=== PATIENT | male | born 2000 | race Two or more races ===

== ENCOUNTER 2024-05-08 10:18 | Inpatient (IN) | payer SELFPAY ==
[2024-05-08] VITALS (23 sets, daily range): BP systolic 81–120; BP diastolic 42–63; PULSE 80–146; RESP 14–23; TEMP 36.8–39.6; O2SAT 92–99; BMI 28.3; BMI 24.2
--- NOTE | 2024-05-08 10:53 | ED_ITS ---
Discharge Plan Disposition Patient Disposition: Admitted Clinical Impressions Clinical Impression: Acute appendicitis, Sepsis Discharge ED Provider: Paula Moss [facility] HPI General Chief complaint: Abdominal Pain Stated complaint: weakness, abd pain, vomiting Mode of Arrival: Wheelchair Source of Information: Patient Limitations: Language Barrier Time Seen by Provider: 05/08/24 10:25 Description of Symptoms (Recalled from Triage Doc. by RN): Reports right lower abdomen pain and vomiting. 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, patient reports started yesterday with pain in his right lower abdomen with N/V that has continued to get worse now having fever and chills and feels ill, Reports pain in right lower abdomen 03/24 Related Data Home Medications ?Medication ?Instructions ?Recorded ?Confirmed No Known Home Medications 05/08/24 05/08/24 Allergies Allergy/AdvReac Type Severity Reaction Status Date / Time No Known Allergies Allergy Verified 05/08/24 11:00 Worker's Comp Is this a Worker's Comp case?: No [facility] Disclaimer: The information contained in this section may have been updated after the patient was seen, as this information can be updated by other users. Social History (Updated 05/08/24 @ 13:22 by Huber Teague CRNA) Smoking Status: Current every day smoker alcohol intake: never substance use type: denies use current occupational status: other Travel in the last 8 weeks: None ROS Obtained: Yes All systems reviewed & no additional complaints except as documented and Yes Systems reviewed as appropriate & no additional complaints except as documented Constitutional Constitutional: Reports system reviewed and no additional complaints, except as documented, Reports as per HPI, Reports chills and Reports fever(s) ENT Ears, Nose, Mouth, and Throat: Reports system reviewed and no additional complaints, except as documented and Reports as per HPI Cardiovascular Cardiovascular: Reports system reviewed and no additional complaints, except as documented and Reports as per HPI Respiratory Respiratory: Reports system reviewed and no additional complaints, except as documented and Reports as per HPI Gastrointestinal Gastrointestingal: Reports system reviewed and no additional complaints, except as documented, as per HPI, abdominal pain, nausea and vomiting Physical Exam General General appearance: alert Comment: Patient lying on exam table holding abdomen Respiratory Respiratory exam: Present normal lung sounds bilaterally; Absent respiratory distress Cardiovascular Cardiovascular exam: Present tachycardia Abdominal Exam Abdominal exam: Present tenderness (reports tenderness in right lower quad with palpation) Neurological Exam Neurological exam: Present alert and oriented X3 Medical Decision Making Medical Records Screening: Per USPSTF and CDC recommendations, given the prevalence of disease in our region, it is our hospital?s policy to screen for HIV and viral Hepatitis for all patients aged 18 and over and those with ongoing risk factors. Guido Inquiry Pt receiving controlled substance: No Guido was queried for this patient: No Vital Signs: 05/08/24 10:21 Temperature 103.3 F H Temperature Source Oral Pulse Rate [Radial] 146 H Respiratory Rate 20 Blood Pressure [Right Arm] 115/58 L Blood Pressure Mean [Right Arm] 77 Blood Pressure Source [Right Arm] Automatic Cuff Blood Pressure Position [Right Arm] Sitting 02 Sat by Pulse Oximetry 96 Oxygen Delivery Method Room Air Lab Data 05/08/24 10:43 05/08/24 10:43 Medical Decision Narrative: Patient complaining of pain in right lower abdomen that started yesterday and has continued to get worse along with N/V fever and chills Due to symptoms and patient complaints will transfer to the ED for further work up and evaluation patient agreed Called Ed and patient was moved to room 9
--- NOTE | 2024-05-08 10:59 | PC.NURSE ---
dr rabago at bedside
--- NOTE | 2024-05-08 11:05 | CT_ITS ---
FINAL REPORT TECHNIQUE: After the administration of intravenous contrast, axial images were obtained through the abdomen and pelvis by computed tomography. The study was performed with techniques to keep radiation dose as low as reasonably achievable, (ALARA). Individual dose reduction techniques using automated exposure control or adjustment of mA and/or kV according to the patient's size were employed. CLINICAL HISTORY: RLQ abd apin, fever, tachy COMPARISON: None FINDINGS: Abdomen: No acute density is seen within the lung bases. Solid abdominal organs are unremarkable. The gallbladder is unremarkable. No bowel obstruction is present. There is no free air. No fluid collection is seen. There is no adenopathy. Pelvis: There is an enlarged thick-walled appendix consistent with appendicitis. The appendix measures up to 10 mm. Pelvic bowel loops are unremarkable. The urinary bladder and prostate are unremarkable. There is no free fluid. No pelvic mass is seen. IMPRESSION: Early mild uncomplicated appendicitis. Reviewed, Interpreted and Dictated by Buck Becker MD Transcribed by Lizeth Hu Authenticated and [facility]
--- NOTE | 2024-05-08 11:08 | ED_ITS ---
Discharge Plan Disposition Patient Disposition: Admitted Prescriptions Prescriptions: No Action No Known Home Medications Referrals Follow up/Referrals: Provider,Referral, [Primary Care Provider] - See instructions Clinical Impressions Clinical Impression: Acute appendicitis, Sepsis Instructions Patient Instructions: DI for Acute Abdominal Pain Print Language Print Language: Sudanese Discharge ED Provider: Paula Moss General Adult HPI General Chief complaint: Abdominal Pain Stated complaint: weakness, abd pain, vomiting Time Seen by Provider: 05/08/24 10:25 Mode of Arrival: Wheelchair Source of Information: Patient Limitations: Language Barrier Description of Symptoms (Recalled from ER Triage Doc. by RN): Reports right lower abdomen pain and vomiting. History of Present Illness HPI narrative: Patient is a 22-year-old previously healthy gentleman who presents today and history is primarily obtained utilizing an conformal pad former. Patient states that for the past 24 hours she has had right lower quadrant abdominal pain its only been located in that area. He has a small amount of dysuria but nothing significant. No testicular pain no symptoms anywhere else. He has had some nausea and vomiting but developed a fever around 4 5 AM subsequently came to the emergency department for further evaluation and management. He was seen in the [facility] and sent to the ED given his acuity. He was tachycardic and febrile at the [facility]. Related Data Home Medications ?Medication ?Instructions ?Recorded ?Confirmed No Known Home Medications 05/08/24 05/08/24 Allergies Allergy/AdvReac Type Severity Reaction Status Date / Time No Known Allergies Allergy Verified 05/08/24 11:00 [facility] Disclaimer: The information contained in this section may have been updated after the patient was seen, as this information can be updated by other users. Social History Smoking Status: Current every day smoker alcohol intake: never current occupational status: other Travel in the last 8 weeks: None ROS Obtained: Yes All systems reviewed & no additional complaints except as documented Physical Exam General General appearance: alert Respiratory Respiratory exam: Present normal lung sounds bilaterally Cardiovascular Cardiovascular exam: Present tachycardia (Heart rate 150 at rest and regular) Abdominal Exam Abdominal exam: Present other (Patient has involuntary guarding significant tenderness in the right lower quadrant with rebound) Neurological Exam Neurological exam: Present alert and oriented X3 Medical Decision Making Medical Records Screening: Per USPSTF and CDC recommendations, given the prevalence of disease in our region, it is our hospital?s policy to screen for HIV and viral Hepatitis for all patients aged 18 and over and those with ongoing risk factors. Guido Inquiry Pt receiving controlled substance: No Vital Signs: 05/08/24 10:21 05/08/24 10:43 05/08/24 10:49 Temperature 103.3 F H 103.3 F H Temperature Source Oral Oral Pulse Rate 128 H Pulse Rate [Radial] 146 H 128 H Respiratory Rate 20 22 Blood Pressure 120/59 L Blood Pressure [Right Arm] 115/58 L 120/59 L Blood Pressure Mean [Right Arm] 77 79 Blood Pressure Source [Right Arm] Automatic Cuff Blood Pressure Position [Right Arm] Sitting 02 Sat by Pulse Oximetry 96 92 L 93 L Oxygen Delivery Method Room Air Room Air 05/08/24 11:15 Temperature Temperature Source Pulse Rate 130 H Pulse Rate [Radial] Respiratory Rate Blood Pressure 103/57 L Blood Pressure [Right Arm] Blood Pressure Mean [Right Arm] Blood Pressure Source [Right Arm] Blood Pressure Position [Right Arm] 02 Sat by Pulse Oximetry 97 Oxygen Delivery Method Room Air Lab Data Lab results reviewed: Yes I reviewed the patient's lab results. Lab Results 05/08/24 10:43: WBC 2.0 L, RBC 5.16, Hgb 16.2, Hct 49.4, MCV 95.9 H, MCH 31.4 H, MCHC 32.7, RDW 13.7, Plt Count 191, MPV 7.2 L, Neut % (Auto) 84.0 H, Lymph % (Auto) 11.7, [place] % (Auto) 2.7, Eos % (Auto) 1.1, Baso % (Auto) 0.4, Neut # (Auto) 1.7 L, Lymph # (Auto) 0.2 L, [place] # (Auto) 0.1, Eos # (Auto) 0.0, Baso # (Auto) 0.0, Sodium 136, Potassium 3.1 L, Chloride 104, Carbon Dioxide 25, Anion Gap 10.1, BUN 18, Creatinine 1.20, Estimated Creat Clear 94, Estimated GFR 76, Est GFR ( Amer) 92, Glucose 130 H, Lactate 2.8 H, Calcium 9.0, Total Bilirubin 2.3 H, AST 121 H, ALT 193 H, Alkaline Phosphatase 84, Total Protein 7.0, Albumin 4.3, Globulin 2.7, Albumin/Globulin Ratio 1.6, Lipase 65, HIV 1&2 Antibody Rapid Nonreactive 05/08/24 10:43 05/08/24 10:43 Orders (Tests/Meds): ED MEDICATIONS Generic Name Dose Route Start Last Admin Trade Name Freq PRN Reason Stop Dose Admin Lactated Ringer's 1,910 mls @ 955 mls/hr 05/08/24 11:27 05/08/24 11:38 Lactated Ringer's 1000 Ml Bag 30 ml/kg infuse over 2 hr (1910 ml) 05/08/24 13:26 955 mls/hr IV Administration .Q2H ONE Piperacillin Sod/Tazobactam 50 mls @ 100 mls/hr 05/08/24 12:33 Sod 3.375 gm/ Sodium Chloride IV 05/08/24 13:02 ONCE ONE Discontinued Medications Generic Name Dose Route Start Last Admin Trade Name Fremiriam PRN Reason Stop Dose Admin Acetaminophen 1,000 mg 05/08/24 11:05 05/08/24 11:11 Acetaminophen 1,000mg/100ml Vial IV 05/08/24 11:06 1,000 mg ONCE ONE Administration Lactated Ringer's 1,000 mls @ 999 mls/hr 05/08/24 11:15 05/08/24 11:11 Lactated Ringer's 1000 Ml Bag IV 05/08/24 12:15 999 mls/hr .Q1H1M LOREN Administration Iopamidol 75 ml 05/08/24 11:58 05/08/24 11:59 Iopamidol-370 (76%);100ml Bottle IV 05/08/24 11:59 75 ml ONCE ONE Administration Morphine Sulfate 4 mg 05/08/24 11:05 05/08/24 11:11 Morphine 4mg/Ml Syringe IV 05/08/24 11:06 4 mg ONCE ONE Administration Ondansetron HCl 4 mg 05/08/24 11:05 05/08/24 11:11 Ondansetron 4mg/2ml Vial IV 05/08/24 11:06 4 mg ONCE ONE Administration Sodium Chloride 10 ml 05/08/24 11:58 05/08/24 11:59 Sodium Chloride 0.9% 10ml Syr (Rad Only) IV 05/08/24 11:59 10 ml ONCE ONE Administration ORDERS Category Date Time Status CT abdomen pelvis w con Stat Cat Scan 05/08/24 11:05 Taken CBC w/Auto Diff [Complete Blood Count Auto Diff] Stat Lab 05/08/24 10:43 Completed CMP [Comprehensive Metabolic Panel] Stat Lab 05/08/24 10:43 Completed HIV (1&2) Antibody Rapid Stat Lab 05/08/24 10:43 Completed Hep C Ab with Reflex to RNA Stat Lab 05/08/24 10:43 Received Hepatitis C Antibody Stat Lab 05/08/24 10:43 Stop Req Lactic Acid Stat Lab 05/08/24 10:43 Completed Lipase Stat Lab 05/08/24 10:43 Completed UA [Urinalysis and Microscopic] Stat Lab 05/08/24 11:06 Ordered Blood Culture Stat Micro 05/08/24 10:49 Received Medical Decision Narrative: Patient is a febrile and tachycardic 22-year-old male presenting today with significant right lower quadrant abdominal pain with some rebound and guarding. Differential includes perforated viscus including a perforated appendicitis with abscess formation, colitis, mesenteric adenitis and viral syndrome, etc. Cultures have been sent IV fluids initiated CT scan with IV contrast has been ordered and will reassess after his initial workup is complete. Reassessment 1235 patient has leukopenia in the setting of fever and tachycardia this is consistent with sepsis. Patient borderline hypotensive but has not required pressors. IV fluids being administered also he has been given a dose of Zosyn after CT scan was performed and personally interpreted which shows uncomplicated appendicitis. He does seem to be sick at a proportion to this appendicitis but will need source control assuming that this is the source. No alternative explanation at this point. I will discuss the case with general surgery and patient will be admitted for surgical intervention and ongoing medical management. Critical Care Critical Care Time Critical Care Time: Yes Attestation: On 05/08/24, the high probability of a clinically significant, sudden or life threatening deterioration of the following system(s) required my full and direct attention, intervention and personal management. The time I documented below is in addition to time spent performing reported procedures but includes the following listed in this critical care notation. Total Time Total Critical Care Time: 35
[2024-05-08] MEDS: MORPHINE 4MG/ML SYRINGE 4 MG IV (11:11)
[2024-05-08] MEDS: ONDANSETRON 4MG/2ML VIAL 4 MG IV (11:11)
[2024-05-08] MEDS: LACTATED RINGERS 1000ML 1,000 ML 999 ML IV (11:11)
[2024-05-08] MEDS: ACETAMINOPHEN 1,000MG/100ML VIAL 1000 MG IV (11:11)
[2024-05-08 11:18] LABS: Albumin Level 4.3 g/dl (3.5-5.0); Chloride 104 mmol/L (98-107); Potassium 3.1 mmoL/L (3.5-5.1); Sodium 136 mmol/L (136-145)
[2024-05-08 11:21] LABS: Alanine Aminotransferase 193 U/L (12-78); Albumin/Globulin Ratio 1.6 (1.1-1.8); Alkaline Phosphatase 84 U/L (38-126); Anion Gap 10.1 mEq/L (5-15); Aspartate Amino Transferase 121 U/L (17-59); Bilirubin,Total 2.3 mg/dl (0.2-1.3); Blood Urea Nitrogen 18 mg/dl (9-20); Carbon Dioxide 25 mmol/L (22.0-30.0); Creatinine Clearance Estimated 94 mL/min (50-200); Estimated Glomerular Filt Rate 76 ml/min (>60); GFR (African American) 92 ML/MIN (>60); Globulin 2.7 g/dL (1.3-3.2); Glucose 130 mg/dl (74-100)
[2024-05-08 11:24] LABS: Lactic Acid 2.8 mmol/L (0.7-2.1)
--- NOTE | 2024-05-08 11:25 | PC.NURSE ---
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 States he started vomiting and belly pain yesterday and developed a fever at 0400. denies any drug or regular etoh intake. no medical problems or daily medications. states pain in rlq is 8/10. medicated per OCT.
[2024-05-08 11:33] LABS: Basophils % 0.4 % (0.1-2.0); Eosinophils % 1.1 % (0.1-12.0); Hematocrit 49.4 % (42.0-52.0); Hemoglobin 16.2 g/dL (14.1-18.0); Lymphocytes # 0.2 K/mm3 (0.7-4.5); Lymphocytes % 11.7 % (10-50); Mean Corpuscular HGB Conc 32.7 g/dL (31.8-35.4); Mean Corpuscular Hemoglobin 31.4 pg (27.0-31.2); Mean Corpuscular Volume 95.9 fl (80-94); Mean Platelet Volume 7.2 fl (7.4-10.4); Monocytes # 0.1 K/mm3 (0.1-1.0); Monocytes % 2.7 % (1.7-9.3); Neutrophils # 1.7 K/mm3 (1.8-7.8); Platelet Count 191 K/mm3 (142-424); Red Blood Count 5.16 M/mm3 (4.60-6.20); Red Cell Distribution Width 13.7 % (11.5-17.5)
--- NOTE | 2024-05-08 11:34 | PC.NURSE ---
pt was sleeping in bed no needs at this time ,call light and visitor at bs
[2024-05-08] MEDS: LACTATED RINGERS 1000ML 1,910 ML 955 ML IV (11:38)
[2024-05-08 11:43] LABS: Lipase 65 U/L (23-300)
--- NOTE | 2024-05-08 11:44 | PC.NURSE ---
pt to ct
[2024-05-08] MEDS: IOPAMIDOL-370 (76%);100ML BOTTLE 75 ML IV (11:59)
[2024-05-08] MEDS: SODIUM CHLORIDE 0.9% 10ML SYR (RAD ONLY) 10 ML IV (11:59)
[2024-05-08 12:21] LABS: HIV (1&2) Antibody Rapid NONREACTIVE (NONREACTIVE)
[2024-05-08] MEDS: PIPERCILLIN/TAZO 3.375 GM in 0.9 % SODIUM CHLORIDE 50 ML IV (12:37)
--- NOTE | 2024-05-08 12:37 | PC.NURSE ---
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
--- NOTE | 2024-05-08 12:51 | PC.NURSE ---
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
--- NOTE | 2024-05-08 12:53 | PC.NURSE ---
report given to huan kathleen rn and zach rn with surgery
--- NOTE | 2024-05-08 12:55 | PC.NURSE ---
surgery team @ bedside
--- NOTE | 2024-05-08 13:03 | PC.NURSE ---
surgery team taking pt upstairs
--- NOTE | 2024-05-08 13:05 | PC.NURSE ---
pt has been taken off the floor with surgery.
--- NOTE | 2024-05-08 13:21 | P.PNANES_ITS ---
[facility] Disclaimer: The information contained in this section may have been updated after the patient was seen, as this information can be updated by other users. Social History Smoking Status: Current every day smoker alcohol intake: never substance use type: denies use current occupational status: other Travel in the last 8 weeks: None [facility] Anesthesia Checklist Patient Identification Patient Identification: Arm Band and Verbal (Name & ) Structural Data Admitted From: Emergency Dept Planned Operative Procedure/s: Lap. appendectomy Consent for Planned Operative Procedure(s) Verified: Yes Verified Documents: Surgical Consent and History and Physical NPO Status Verified Time NPO: 00:00 Chart Verification Results Verified: CBC and BMP Additional verifications Anesthesia Reactions: No Airway Assessment Mallampati Score:: Class IV C-Spine Mobility Assessed: Yes TMJ Mobility Assessed: Yes Dentition: Good Dentition Neurological Assessment Level of Consciousness: Awake Hx Seizures: No Numbness or tingling in extremities: No Anesthesia Plan Anesthesia Risk discussed: Yes Anesthesia Plan: Verified ASA Class: II Anesthesia Type: General
--- NOTE | 2024-05-08 13:30 | SUR.PREOP ---
All interpreting was done with ipad. Dr Walsh, anesthesia and nursing staff had Joni agent #[id number] for interpretation
[2024-05-08 15:09] LABS: Reflex Lactic Add Lactic Reflex
[2024-05-08] MEDS: CEFTRIAXONE SODIUM 2 GM in 0.9 % SODIUM CHLORIDE 100 ML IV (15:45)
[2024-05-08] MEDS: METRONIDAZ/SOD CHL 500 MG/100 ML PIGGYBACK 100 MG IV (15:45)
[2024-05-08 16:00] LABS: Lactic Acid Follow Up (RFLX 1) 3.9 mmol/L (0.7-2.1)
[2024-05-08] MEDS: LIDOCAINE 1% 20ML MDV 20 ML (16:24)
--- NOTE | 2024-05-08 16:57 | P.HP_ITS ---
HPI HPI HPI: This is a 22-year-old gentleman who presents to the emergency department with increasing right lower quadrant pain evaluation revealed the patient to be febrile and tachycardic. A CT scan showed changes consistent with appendicitis with no definitive perforation. Surgical service was consulted for evaluation and management. Please see HPI/medical decision narrative forwarded from emergency department evaluation below. 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 Patient states that for the past 24 hours she has had right lower quadrant abdominal pain its only been located in that area. He has a small amount of dysuria but nothing significant. No testicular pain no symptoms anywhere else. He has had some nausea and vomiting but developed a fever around 4 5 AM subsequently came to the emergency department for further evaluation and management. He was seen in the [facility] and sent to the ED given his acuity. He was tachycardic and febrile at the [facility]. Medical Decision Narrative: Patient is a febrile and tachycardic 22-year-old male presenting today with significant right lower quadrant abdominal pain with some rebound and guarding. Differential includes perforated viscus including a perforated appendicitis with abscess formation, colitis, mesenteric adenitis and viral syndrome, etc. Cultures have been sent IV fluids initiated CT scan with IV contrast has been ordered and will reassess after his initial workup is complete. Reassessment 1235 patient has leukopenia in the setting of fever and tachycardia this is consistent with sepsis. Patient borderline hypotensive but has not required pressors. IV fluids being administered also he has been given a dose of Zosyn after CT scan was performed and personally interpreted which shows uncomplicated appendicitis. He does seem to be sick at a proportion to this appendicitis but will need source control assuming that this is the source. No alternative explanation at this point. I will discuss the case with general surgery and patient will be admitted for surgical intervention and ongoing medical management. [facility] Disclaimer: The information contained in this section may have been updated after the patient was seen, as this information can be updated by other users. Social History (Updated 05/08/24 @ 13:22 by Huber Teague CRNA) Smoking Status: Current every day smoker alcohol intake: never substance use type: denies use current occupational status: other Travel in the last 8 weeks: None Review of Systems Constitutional Constitutional: Reports as per HPI Eyes Eyes: Denies eye discharge ENT Ears, Nose, Mouth, and Throat: Denies dizziness and Denies throat swelling *Cardiovascular Cardiovascular: Denies chest pain and Denies dyspnea *Respiratory Respiratory: Denies dyspnea *Gastrointestinal Gastrointestinal: Reports as per HPI *Genitourinary Genitourinary: Denies dysuria *Musculoskeletal Musculoskeletal: Denies deformity Integumentary/Breasts Skin/Breast: Denies change in pigmentation *Neurologic Neurologic: Denies abnormal movements and Denies dizziness Psychiatric Psychiatric: Reports change in appetite Endocrine Endocrine: Denies cold intolerance Hematologic/Lymphatic Hematologic/Lymphatic: Denies easy bleeding Allergic/Immunologic Allergic/Immunologic: Denies throat swelling Meds Home Medications and Allergies Home Medications ?Medication ?Instructions ?Recorded ?Confirmed ?Type No Known Home Medications 05/08/24 05/08/24 History New Prescriptions to Start Prescriptions: Allergies Allergy/AdvReac Type Severity Reaction Status Date / Time No Known Allergies Allergy Verified 05/08/24 11:00 Exam Data for Last 24 hours Vital signs and Labs for Last 24 Hours: Temp Pulse Resp BP Pulse Ox O2 Del Method 99.9 F H 117 H 20 90/48 L 96 Room Air 05/08/24 13:03 05/08/24 13:03 05/08/24 13:03 05/08/24 13:03 05/08/24 12:30 05/08/24 13:03 Laboratory Results - last 24 hr 05/08/24 10:43: WBC 2.0 L, RBC 5.16, Hgb 16.2, Hct 49.4, MCV 95.9 H, MCH 31.4 H, MCHC 32.7, RDW 13.7, Plt Count 191, MPV 7.2 L, Neut % (Auto) 84.0 H, Lymph % (Auto) 11.7, [place] % (Auto) 2.7, Eos % (Auto) 1.1, Baso % (Auto) 0.4, Neut # (Auto) 1.7 L, Lymph # (Auto) 0.2 L, [place] # (Auto) 0.1, Eos # (Auto) 0.0, Baso # (Auto) 0.0, Sodium 136, Potassium 3.1 L, Chloride 104, Carbon Dioxide 25, Anion Gap 10.1, BUN 18, Creatinine 1.20, Estimated Creat Clear 94, Estimated GFR 76, Est GFR ( Amer) 92, Glucose 130 H, Lactate 2.8 H, Calcium 9.0, Total Bilirubin 2.3 H, AST 121 H, ALT 193 H, Alkaline Phosphatase 84, Total Protein 7.0, Albumin 4.3, Globulin 2.7, Albumin/Globulin Ratio 1.6, Lipase 65, HIV 1&2 Antibody Rapid Nonreactive 05/08/24 15:28: Lactate 3.9 H I & O for Last 24 hours: Intake & Output 05/06/24 05/07/24 05/08/24 05/09/24 11:59 11:59 11:59 11:59 Weight 150 lb Constitutional Constitutional: no acute distress *Routine HEENT Exam Head: Present normocephalic Eye: Present EOMI ENT: Present mucous membranes moist *Routine Neck Exam Neck: Present full ROM Routine Chest/Breast/Axilla Exam Chest wall: Absent tenderness *Routine Respiratory Exam Respiratory: Absent respiratory distress *Routine Cardiovascular Exam Cardiovascular: Present tachycardia *Routine Abdominal Exam Abdominal: Present tenderness *Routine Rectal Exam Rectal:: deferred *Routine Genitalia Exam Genitalia:: deferred *Routine Extremities Exam Extremities: Present full ROM; Absent cyanosis, clubbing or edema Routine Back/Spine/Pelvis Exam Back/Spine: Present full ROM *Routine Skin Exam Skin: Absent erythema *Routine Neurological Exam Neurological: Present alert Routine Psychiatric Exam Psychiatric: Present normal affect Results Results Lab Results Last 24 Hours:: Laboratory Results - last 24 hr 05/08/24 10:43: WBC 2.0 L, RBC 5.16, Hgb 16.2, Hct 49.4, MCV 95.9 H, MCH 31.4 H, MCHC 32.7, RDW 13.7, Plt Count 191, MPV 7.2 L, Neut % (Auto) 84.0 H, Lymph % (Auto) 11.7, [place] % (Auto) 2.7, Eos % (Auto) 1.1, Baso % (Auto) 0.4, Neut # (Auto) 1.7 L, Lymph # (Auto) 0.2 L, [place] # (Auto) 0.1, Eos # (Auto) 0.0, Baso # (Auto) 0.0, Sodium 136, Potassium 3.1 L, Chloride 104, Carbon Dioxide 25, Anion Gap 10.1, BUN 18, Creatinine 1.20, Estimated Creat Clear 94, Estimated GFR 76, Est GFR ( Amer) 92, Glucose 130 H, Lactate 2.8 H, Calcium 9.0, Total Bilirubin 2.3 H, AST 121 H, ALT 193 H, Alkaline Phosphatase 84, Total Protein 7.0, Albumin 4.3, Globulin 2.7, Albumin/Globulin Ratio 1.6, Lipase 65, HIV 1&2 Antibody Rapid Nonreactive 05/08/24 15:28: Lactate 3.[address] scan - abdomen: report reviewed and image reviewed CT scan - pelvis: report reviewed and image reviewed Assessment and Plan *Assessment and plan (1) Acute appendicitis: Status: Acute Qualifiers: Acute appendicitis type: with localized peritonitis Appendicitis gangrene presence: unspecified whether gangrene present Appendicitis perforatio n presence: without perforation Appendicitis abscess presence: without abscess Qualified Code(s): K35.30 - Acute appendicitis with localized peritonitis, without perforation or gangrene Category: Medical Code(s): K35.80 - Unspecified acute appendicitis Plan IV antibiotics IV fluid boluses needed Laparoscopic appendectomy I have discussed the risks and benefits including, but not limited to: Bleeding Infection Damage to surrounding tissue Inherent risks of sedation The patient agrees to proceed.
--- NOTE | 2024-05-08 17:03 | EXP.OP.NOTE ---
Date of procedure: 05/08/24 Pre-op Diagnosis:: Appendicitis Post-op Diagnosis:: Suppurative appendicitis with patchy necrosis Procedure performed:: Laparoscopic appendectomy Surgeon:: Demario Walsh MD JEWEL [employer]ING MACHINE OPERATOR:: Mina Dozier Anesthesia: GETMarisol Estimated blood loss (mL): 15 Operative findings:: Enlarged inflamed appendix with suppuration and patchy necrosis No obvious perforation No obvious abscess Dense adhesions to surrounding small bowel and colon Operative note:: After informed consent was obtained the patient was taken to the operating room and placed in the supine position. General anesthesia was induced and his abdomen was prepped and draped in a sterile fashion. After infiltration with local anesthetic an infraumbilical incision was made. A Veress needle was placed in position. The abdomen was insufflated. A 12 mm optical trocar was placed in position. Under direct visualization and an additional 5 mm trocar was placed in the suprapubic position and an additional 5 mm trocar was placed in the left lower quadrant. The appendix was carefully elevated. The appendix was inflamed/enlarged. Suppurative changes and patchy necrosis confirmed. Fairly dense adhesions to surrounding small bowel and colon also noted. No obvious perforation or abscess was seen. The mesoappendix was carefully taken with harmonic michel to a point just proximal to the base. Careful blunt dissection was then utilized to complete the window at the appendiceal base. An Endopath 45 stapling device was utilized to transect the appendix at its base. The appendix was placed in a retrieval bag and removed through the infraumbilical trocar site. The right lower quadrant was thoroughly irrigated. No active bleeding or sign of injury was noted. No pockets of purulence were noted. Trocars were carefully removed. Fascia at the infraumbilical trocar site was reapproximated with 0 Ethibond. All wounds were irrigated and skin was closed with 4-0 Monocryl in a subcuticular fashion. Dressings were applied and patient was transferred to recovery in stable condition. Condition: stable Disposition: PACU Specimens:: Appendix Complications:: No immediate
--- NOTE | 2024-05-08 17:11 | EXP.ANES.I ---
[facility] Anesthesia Record Part I Anesthesia Record I Intake, IV Amount: 1,800 Hydration: Adequate Estimated blood loss (mL): 10 Urine output (mL): 400 Blood Products used (#): none Blood Pressure: 111/56 SaO2: 95 Pulse Rate: 112 Airway Patency: Patent Respiratory Rate: 16 Temperature: 98.6 F Patient is:: Drowsy and Stable Stable to PACU at:: 17:05
[2024-05-08 17:31] LABS: Reflex Lactic (2 hrs) Add Lactic Reflex
--- NOTE | 2024-05-08 17:39 | PC.NURSE ---
arrived by bed from surgery
--- NOTE | 2024-05-08 18:04 | ECG_ITS ---
APPROVED REPORT Exam: Resting ECG HR:101 bpm ECG Measurements Heart Rate 101 AXES WA 140 P 58 QRSd 96 QRS 66 QT 294 T 8 QTc [address] ELEVATION CONSISTENT WITH EARLY REPOLARIZATION O/w Normal ecg UNCONFIRMED REPORT Electronically signed by : Bar Roberts MD 05/09/2024 07:33:36
[2024-05-08 18:05] LABS: Microscopic, Urine URINE MICROSCOPIC (MICROSCOPIC)
[2024-05-08 18:19] LABS: Appearance,Urine CLEAR (Clear); Bilirubin,Urine Negative (Negative); Blood, Urine Negative (Negative); Color,Urine YELLOW (Yellow); Glucose,Urine (UA) Negative (Negative); Ketones,Urine Negative (Negative); Leukocyte Esterase,Urine Negative (Negative); Nitrate,Urine Negative (Negative); Protein,Urine Negative (Negative); Specific Gravity, Urine <= 1.005 (1.005-1.030); Urobilinogen,Urine 0.2 EU/dl (0.2)
[2024-05-08] MEDS: LACTATED RINGERS 1000ML 1,000 ML 125 ML IV (18:23)
[2024-05-08 18:34] LABS: Lactic Acid Follow up (RFLX 2) 3.4 mmol/L (0.7-2.1)
--- NOTE | 2024-05-08 18:50 | PC.NURSE ---
I was called to patients room due to patient being hypotensive and hr/pr mismatch on data scope. Data scope switched out and hr/pr was still showing a mismatch. Pulse rate was showing in the 200's while heart rate was 100's-110's. Bp was 70's-80's sys. Dr Walsh notified and EKG obtained due to hr/pr mismatch. Dr Walsh requested to consult the hospitalist. Dr Elder notified and given EKG for interpretation, he requested 1L fluid bolus and patient be moved to [place] for closer monitoring.
[2024-05-08] MEDS: PIPERACILLIN/TAZO 4.5 GM in 0.9 % SODIUM CHLORIDE 100 ML IV (18:53)
[2024-05-08 19:49] LABS: RBC,Urine Occasional #/hpf (0-3); Squamous Epithelial Cell,Urine Occasional #/hpf (0-5)
--- NOTE | 2024-05-08 20:25 | P.CONS_ITS ---
History of Present Illness *Admission Date: 05/08/24 *Reason for visit:: sepsis, abdominal pain *History of present illness: This is a 22-year-old gentleman who presents to the emergency department with increasing right lower quadrant pain evaluation revealed the patient to be febrile and tachycardic. Meeting severe sepsis criteria on presentation. Workup concerning for appendicitis on CT. Febrile to 103, white count 2. Surgery was consulted and patient was taken emergently to the OR for intervention/appendicitis. Received sepsis bolus between the ER and the OR. Broad-spectrum antibiotics with Zosyn administered. Cultures obtained. Upon arrival to the floor, patient's blood pressure remained low. Concern for meeting septic shock criteria given persistent hypotension with MAP less than 65. Medicine was consulted to assist with care. On evaluation, patient is alert and oriented. Appears to be perfusing well. No significant distress. Heart rate 95-100. Production Support Engineer used to obtain history. No past medical history of hospitalizations or previous surgeries. On no medications. No known medical conditions. Patient states he is feeling okay, does not feel dizzy or weak. Complains of some abdominal pain. Medicine consulted by surgery for assistance with medical management of his sepsis. History and review of systems obtained with the assistance of educational sign language interpreter [id number]. Via the [employer] educational sign language interpreter service [facility] Disclaimer: The information contained in this section may have been updated after the patient was seen, as this information can be updated by other users. Surgical History S/P appendectomy Family History Other No significant family history Social History Smoking Status: Current every day smoker alcohol intake: never substance use type: denies use current occupational status: other Travel in the last 8 weeks: Outside the continental [place] Review of Systems Review of Systems Review of systems (narrative): 14 point review of systems performed, pertinent positives and negatives as per HPI ENT Ears, Nose, Mouth, and Throat: Denies dizziness *Neurologic Neurologic: Denies abnormal movements and Denies dizziness Exam Data for Last 24 hours Vital signs and Labs for Last 24 Hours: Temp Pulse Resp BP Pulse Ox O2 Del Method O2 Flow Rate 99.1 F 94 H 16 108/56 L 96 Room Air 2 05/08/24 17:55 05/08/24 18:55 05/08/24 18:55 05/08/24 18:55 05/08/24 18:55 05/08/24 19:00 05/08/24 17:15 Laboratory Results - last 24 hr 05/08/24 10:43: WBC 2.0 L, RBC 5.16, Hgb 16.2, Hct 49.4, MCV 95.9 H, MCH 31.4 H, MCHC 32.7, RDW 13.7, Plt Count 191, MPV 7.2 L, Neut % (Auto) 84.0 H, Lymph % (Auto) 11.7, [place] % (Auto) 2.7, Eos % (Auto) 1.1, Baso % (Auto) 0.4, Neut # (Auto) 1.7 L, Lymph # (Auto) 0.2 L, [place] # (Auto) 0.1, Eos # (Auto) 0.0, Baso # (Auto) 0.0, Sodium 136, Potassium 3.1 L, Chloride 104, Carbon Dioxide 25, Anion Gap 10.1, BUN 18, Creatinine 1.20, Estimated Creat Clear 94, Estimated GFR 76, Est GFR ( Amer) 92, Glucose 130 H, Lactate 2.8 H, Calcium 9.0, Total Bilirubin 2.3 H, AST 121 H, ALT 193 H, Alkaline Phosphatase 84, Total Protein 7.0, Albumin 4.3, Globulin 2.7, Albumin/Globulin Ratio 1.6, Lipase 65, HIV 1&2 Antibody Rapid Nonreactive 05/08/24 15:28: Lactate 3.9 H 05/08/24 15:50: Urine Color Yellow, Urine Appearance Clear, Urine pH 7.0, Ur Specific [place] <= 1.005, Urine Protein Negative, Urine Glucose (UA) Negative, Urine Ketones Negative, Urine Blood Negative, Urine Nitrate Negative, Urine Bilirubin Negative, Urine Urobilinogen 0.2, Ur Leukocyte Esterase Negative, Urine RBC Occasional, Urine WBC 3-5, Ur Squamous Epith Cells Occasional 05/08/24 17:46: Lactate 3.4 H I & O for Last 24 hours: Intake & Output 05/05/24 05/06/24 05/07/24 05/08/24 23:59 23:59 23:59 23:59 Intake Total 1800 / 1800 Balance 1800 / 1800 Weight 68.039 kg Constitutional Constitutional: mild distress, average body habitus and cooperative *Routine HEENT Exam Head: Present normocephalic Eye: Present EOMI and PERRL ENT: Present mucous membranes moist *Routine Neck Exam Neck: Present supple; Absent lymphadenopathy *Routine Respiratory Exam Respiratory: Present CTA bilaterally; Absent rhonchi, wheezes or crackles *Routine Cardiovascular Exam Cardiovascular: Present Normal S1, Normal S2, murmur and tachycardia *Routine Abdominal Exam Abdominal: Present soft, normoactive bowel sounds and tenderness; Absent distended or rebound *Routine Rectal Exam Patient deferred: visual exam *Routine Exam Patient deferred: penile exam *Routine Extremities Exam Extremities: Absent cyanosis, clubbing or edema *Routine Skin Exam Skin: Present intact and warm; Absent rash *Routine Neurological Exam Neurological: Present alert, oriented X3 and moving all extremities; Absent altered mental status Meds Home Medications and Allergies Home Medications ?Medication ?Instructions ?Recorded ?Confirmed ?Type No Known Home Medications 05/08/24 05/08/24 History New Prescriptions to Start Prescriptions: Allergies Allergy/AdvReac Type Severity Reaction Status Date / Time No Known Allergies Allergy Verified 05/08/24 11:00 Results Labs 05/08/24 10:43 05/08/24 10:43 Labs: Abnormal lab results 05/08/24 05/08/24 05/08/24 Range/Units 10:43 15:28 17:46 WBC 2.0 L (4.8-10.8) K/mm3 MCV 95.9 H (80-94) fl MCH 31.4 H (27.0-31.2) pg MPV 7.2 L (7.4-10.4) fl Neut % (Auto) 84.0 H (37.0-80.0) % Neut # (Auto) 1.7 L (1.8-7.8) K/mm3 Lymph # (Auto) 0.2 L (0.7-4.5) K/mm3 Potassium 3.1 L (3.5-5.1) mmoL/L Glucose 130 H (74-100) mg/dl Lactate 2.8 H 3.9 H 3.4 H (0.7-2.1) mmol/L Total Bilirubin 2.3 H (0.2-1.3) mg/dl AST 121 H (17-59) U/L ALT 193 H (12-78) U/L H & H 05/08/24 Range/Units 10:43 Hgb 16.2 (14.1-18.0) g/dL Hct 49.4 (42.0-52.0) % All other labs normal. Assessment and Plan *Assessment and plan (1) Septic shock: Status: Acute Category: Medical Code(s): A41.9 - Sepsis, unspecified organism; R65.21 - Severe sepsis with septic shock (2) Acute appendicitis: Status: Acute Qualifiers: Acute appendicitis type: with localized peritonitis Appendicitis abscess presence: without abscess Appendicitis gangrene presence: unspecified whether gangrene present Appendicitis perforation presence: without perforation Qualified Code(s): K35.30 - Acute appendicitis with localized peritonitis, without perforation or gangrene Category: Medical Code(s): K35.80 - Unspecified acute appendicitis Plan 23-year-old male who presented to the ER with abdominal pain. Meeting criteria for septic shock. Case discussed with surgery, request consultation due to patient's persistent clinical instability. I agreed to evaluate and assist with further management. Meeting septic shock criteria with fever of 103, leukocytosis of 2, infection in his abdomen, endorgan dysfunction with elevated liver enzymes, persistent hypotension with MAP below 65 after adequate fluid resuscitation, and lactate of 3.9. At this time recommend escalating care to stepdown from MedSurg for closer monitoring. Monitor vitals every 4 hours. Repeat CBC, CMP, magnesium ordered for the morning. Per my review of CT, no grace perforation or free air. Continue Zosyn 4.5 g every 6 hours. Pain control per surgery recommendations. Patient adequately resuscitated with sepsis bolus, contioonue maintenance IVF @125 of LR per hour. Goal MAP greater than 60 given normal mentation and perfusing well on exam. If drops below 60, recommend initiating Levophed. - Improving since surgery. Kidney function normal with BUN 18, creatinine 1.2. Bilirubin 2.3, AST 121, ALT 193. Repeat CBC, CMP, magnesium ordered for the morning Thank for the consult on this patient. High risk of decompensation. Needs close monitoring. Condition currently life-threatening. Patient is on antibiotics and pain medication needing close monitoring due to risk for toxicity. Full code Clear liquid diet
--- NOTE | 2024-05-08 20:27 | EXP.SEPSISRE ---
[facility] Tissue Perfusion Eval Sepsis Re-Evaluation Performed: Yes Date Performed: 05/08/24 Time Performed: 19:15
--- NOTE | 2024-05-08 23:17 | EXP.EVENT.NO ---
Patient reevaluated by Dr. Zuniga overnight at 11:10 PM 05/08/2024. Patient resting comfortably on maintenance IV fluids. Patient's MAP consistently between 64-70 on MIVF. No current indication to start vasopressors. Will continue to follow patient's condition closely overnight. Patient postop day #0 status post laparoscopic appendectomy for evaluation of Suppurative appendicitis with patchy necrosis.
[2024-05-09] VITALS (10 sets, daily range): BP systolic 94–115; BP diastolic 43–65; PULSE 60–105; RESP 16–22; TEMP 37–38.1; O2SAT 94–100; BMI 27.2
--- NOTE | 2024-05-09 01:22 | PC.NURSE ---
notified Dr Zuniga of positive blood cultures
--- NOTE | 2024-05-09 01:22 | EXP.EVENT.NO ---
Also noted that patient's most current lactic acid 3.4 versus previously 3.9 versus previously 2.8. Patient currently on IV vancomycin/Zosyn. Will continue current management with maintenance IV fluids. Since MAP remained around 64 or higher overnight, no vasopressors required at this time.
[2024-05-09] MEDS: PIPERACILLIN/TAZO 4.5 GM in 0.9 % SODIUM CHLORIDE 100 ML IV ×4 (01:31→19:05)
[2024-05-09] MEDS: LACTATED RINGERS 1000ML 1,000 ML 125 ML IV (01:31)
[2024-05-09] MEDS: IBUPROFEN 600 MG TABLET PO (02:29)
--- NOTE | 2024-05-09 02:31 | PC.NURSE ---
Used translating IPAD to ask patient is he was in pain and would like pain medicine. Patient shook head no, and explained to retail sales associate seasonal that he was not in pain, and declined pain medication at this time. Patient states to elastic attacher coverstitch that he needs to go to bathroom. Patient able to transition to side of bed and use urinal independently. Requests privacy upon doing so. Privacy provided with call light within reach. Patient urinated 350ml into urinal that is pravin in color, with strong odor. Patient appears diaphoretic and warm to touch. Patient temp currently 100.5. Ibuprofen administered. See MAR. No further needs voiced.
[2024-05-09 02:36] LABS: Appearance,Urine CLEAR (Clear); Blood, Urine TRACE-I (Negative); Color,Urine DARK YELLOW (Yellow); Glucose,Urine (UA) Negative (Negative); Ketones,Urine Negative (Negative); Leukocyte Esterase,Urine TRACE (Negative); Microscopic, Urine URINE MICROSCOPIC (MICROSCOPIC); Nitrate,Urine Negative (Negative); PH,Urine 6.5 (5.0-8.5); Protein,Urine 1+ (Negative); Specific Gravity, Urine 1.015 (1.005-1.030); Urobilinogen,Urine 0.2 EU/dl (0.2)
[2024-05-09 02:39] LABS: Bilirubin,Urine Negative (Negative)
[2024-05-09 02:42] LABS: Bacteria,Urine 1+ /lpf
--- NOTE | 2024-05-09 03:53 | PC.NURSE ---
Received call from lab stating that patient blood culture is positive from gram + cocci. aware. New orders. See MAR
[2024-05-09] MEDS: VANCOMYCIN CONSULT REQUEST 1 EACH NOTAPPLIC (04:19)
[2024-05-09] MEDS: VANCOMYCIN HCL 1,000 MG in 0.9 % SODIUM CHLORIDE 250 ML 125 MG IV (04:26)
[2024-05-09 05:58] LABS: Alanine Aminotransferase 140 U/L (12-78); Albumin Level 2.9 g/dl (3.5-5.0); Albumin/Globulin Ratio 1.2 (1.1-1.8); Alkaline Phosphatase 26 U/L (38-126); Anion Gap 6.3 mEq/L (5-15); Aspartate Amino Transferase 89 U/L (17-59); Bilirubin,Total 2.2 mg/dl (0.2-1.3); Blood Urea Nitrogen 22 mg/dl (9-20); Calcium 7.4 mg/dl (8.4-10.2); Carbon Dioxide 24 mmol/L (22.0-30.0); Chloride 109 mmol/L (98-107); Creatinine Clearance Estimated 105 mL/min (50-200); Estimated Glomerular Filt Rate 76 ml/min (>60); GFR (African American) 92 ML/MIN (>60); Globulin 2.4 g/dL (1.3-3.2); Glucose 95 mg/dl (74-100); Potassium 3.3 mmoL/L (3.5-5.1); Sodium 136 mmol/L (136-145); Total Protein,Serum 5.3 g/dl (6.3-8.2)
[2024-05-09 06:07] LABS: Basophils % 0.2 % (0.1-2.0); Eosinophils # 0.1 K/mm3 (0.0-0.4); Eosinophils % 0.7 % (0.1-12.0); Hematocrit 44.4 % (42.0-52.0); Lymphocytes # 0.4 K/mm3 (0.7-4.5); Lymphocytes % 2.3 % (10-50); Mean Corpuscular HGB Conc 32.2 g/dL (31.8-35.4); Mean Corpuscular Hemoglobin 31.6 pg (27.0-31.2); Mean Corpuscular Volume 97.9 fl (80-94); Monocytes # 0.5 K/mm3 (0.1-1.0); Monocytes % 3.2 % (1.7-9.3); Neutrophils # 14.2 K/mm3 (1.8-7.8); Neutrophils % 93.5 % (37.0-80.0); Platelet Count 128 K/mm3 (142-424); Red Blood Count 4.53 M/mm3 (4.60-6.20); White Blood Count 15.1 K/mm3 (4.8-10.8)
[2024-05-09 06:10] LABS: MANUAL DIFFERENTIAL MANUAL DIFFERENTIAL (MANUAL DIFF)
[2024-05-09 06:17] LABS: Hemoglobin 14.3 g/dL (14.1-18.0)
--- NOTE | 2024-05-09 07:18 | P.PN_ITS ---
Subjective Patient reports: feels better and pain is less Narrative: The patient states that he feels better this morning and is in less pain. Per nursing he continued to have moderate hypotension overnight but was more stable . Exam Data for Last 24 hours Vital signs and Labs for Last 24 Hours: Temp Pulse Resp BP Pulse Ox O2 Del Method O2 Flow Rate 98.6 F 82 17 99/47 L 97 Room Air 2 05/09/24 04:00 05/09/24 04:00 05/09/24 04:00 05/09/24 04:00 05/09/24 04:00 05/09/24 04:00 05/08/24 17:15 Laboratory Results - last 24 hr 05/08/24 10:43: WBC 2.0 L, RBC 5.16, Hgb 16.2, Hct 49.4, MCV 95.9 H, MCH 31.4 H, MCHC 32.7, RDW 13.7, Plt Count 191, MPV 7.2 L, Neut % (Auto) 84.0 H, Lymph % (Auto) 11.7, [place] % (Auto) 2.7, Eos % (Auto) 1.1, Baso % (Auto) 0.4, Neut # (Auto) 1.7 L, Lymph # (Auto) 0.2 L, [place] # (Auto) 0.1, Eos # (Auto) 0.0, Baso # (Auto) 0.0, Sodium 136, Potassium 3.1 L, Chloride 104, Carbon Dioxide 25, Anion Gap 10.1, BUN 18, Creatinine 1.20, Estimated Creat Clear 94, Estimated GFR 76, Est GFR ( Amer) 92, Glucose 130 H, Lactate 2.8 H, Calcium 9.0, Total Bilirubin 2.3 H, AST 121 H, ALT 193 H, Alkaline Phosphatase 84, Total Protein 7.0, Albumin 4.3, Globulin 2.7, Albumin/Globulin Ratio 1.6, Lipase 65, HIV 1&2 Antibody Rapid Nonreactive 05/08/24 15:28: Lactate 3.9 H 05/08/24 15:50: Urine Color Yellow, Urine Appearance Clear, Urine pH 7.0, Ur Specific [employer] <= 1.005, Urine Protein Negative, Urine Glucose (UA) Negative, Urine Ketones Negative, Urine Blood Negative, Urine Nitrate Negative, Urine Bilirubin Negative, Urine Urobilinogen 0.2, Ur Leukocyte Esterase Negative, Urine RBC Occasional, Urine WBC 3-5, Ur Squamous Epith Cells Occasional 05/08/24 17:46: Lactate 3.4 H 05/09/24 02:27: Urine Color Dark yellow, Urine Appearance Clear, Urine pH 6.5, Ur Specific [employer] 1.015, Urine Protein 1+ A, Urine Glucose (UA) Negative, Urine Ketones Negative, Urine Blood Trace-i, Urine Nitrate Negative, Urine Bilirubin Negative, Urine Urobilinogen 0.2, Ur Leukocyte Esterase Trace, Urine RBC 3-5, Urine WBC 3-5, Ur Squamous Epith Cells 3-5, Urine Bacteria 1+ 05/09/24 05:23: WBC 15.1 H D, RBC 4.53 L, Hgb 14.3 D, Hct 44.4, MCV 97.9 H, MCH 31.6 H, MCHC 32.2, RDW 14.0, Plt Count 128 L D, MPV 8.0, Neut % (Auto) 93.5 H, Lymph % (Auto) 2.3 L, [place] % (Auto) 3.2, Eos % (Auto) 0.7, Baso % (Auto) 0.2, Neut # (Auto) 14.2 H, Lymph # (Auto) 0.4 L, [place] # (Auto) 0.5, Eos # (Auto) 0.1, Baso # (Auto) 0.0, Sodium 136, Potassium 3.3 L, Chloride 109 H, Carbon Dioxide 24, Anion Gap 6.3, BUN 22 H, Creatinine 1.20, Estimated Creat Clear 105, Estimated GFR 76, Est GFR ( Amer) 92, Glucose 95 D, Calcium 7.4 L, Total Bilirubin 2.2 H, AST 89 H D, ALT 140 H D, Alkaline Phosphatase 26 L, Total Protein 5.3 L, Albumin 2.9 L D, Globulin 2.4, Albumin/Globulin Ratio 1.2 I & O for Last 24 hours: Intake & Output 05/06/24 05/07/24 05/08/24 05/09/24 11:59 11:59 11:59 11:59 Intake Total 2744 / 2744 Output Total 350 / 350 Balance 2394 / 2394 Weight 150 lb 169 lb 8 oz Microbiology Reports for the Last 24 Hours: Microbiology 05/08/24 10:49 Blood Blood Culture - Final 05/08/24 10:49 Blood Blood Culture - Final Constitutional Constitutional: no acute distress *Routine Respiratory Exam Respiratory: Absent respiratory distress *Routine Cardiovascular Exam Cardiovascular: Absent tachycardia *Routine Abdominal Exam Comments: Dressings in place. Progress Note: A&P Assessment and plan (1) Septic shock: Status: Acute Assessment and plan: Showing evidence improvement overnight. Continue management as per Hospitalist service (2) Acute appendicitis: Status: Acute Assessment and plan: Stable status post laparoscopic appendectomy Complete course of antibiotics
--- NOTE | 2024-05-09 08:10 | EXP.ANES.II ---
[facility] Anesthesia Record Part II Anesthesia Record Part II Discharge Time: 17:35 Destination: Medical Surgical Department PACU nurse assessment reviewed?: Yes Patient Condition:: Good Anesthesia Complications:: None Swallowing reflex intact?: Yes Airway Patency: Patent Cyanosis?: No Blood Pressure: 97/43 SaO2: 94 Respiratory Rate: 22 Pulse Rate: 105 Temperature: 98.6 F Mental Status: Alert & Oriented Pain level:: 0 Nausea and/or vomitting:: None Intake, IV Amount: 0 Hydration: Adequate
--- NOTE | 2024-05-09 08:23 | EXP.MED.FU ---
Subjective *Date: 05/09/24 *Time: 15:53 Exam Data for Last 24 hours Vital signs and Labs for Last 24 Hours: Temp Pulse Resp BP Pulse Ox O2 Del Method O2 Flow Rate 98.6 F 82 22 99/47 L 97 Room Air 2 05/09/24 04:00 05/09/24 04:00 05/09/24 08:12 05/09/24 04:00 05/09/24 04:00 05/09/24 04:00 05/08/24 17:15 Laboratory Results - last 24 hr 05/08/24 10:43: WBC 2.0 L, RBC 5.16, Hgb 16.2, Hct 49.4, MCV 95.9 H, MCH 31.4 H, MCHC 32.7, RDW 13.7, Plt Count 191, MPV 7.2 L, Neut % (Auto) 84.0 H, Lymph % (Auto) 11.7, [place] % (Auto) 2.7, Eos % (Auto) 1.1, Baso % (Auto) 0.4, Neut # (Auto) 1.7 L, Lymph # (Auto) 0.2 L, [place] # (Auto) 0.1, Eos # (Auto) 0.0, Baso # (Auto) 0.0, Sodium 136, Potassium 3.1 L, Chloride 104, Carbon Dioxide 25, Anion Gap 10.1, BUN 18, Creatinine 1.20, Estimated Creat Clear 94, Estimated GFR 76, Est GFR ( Amer) 92, Glucose 130 H, Lactate 2.8 H, Calcium 9.0, Total Bilirubin 2.3 H, AST 121 H, ALT 193 H, Alkaline Phosphatase 84, Total Protein 7.0, Albumin 4.3, Globulin 2.7, Albumin/Globulin Ratio 1.6, Lipase 65, HIV 1&2 Antibody Rapid Nonreactive 05/08/24 15:28: Lactate 3.9 H 05/08/24 15:50: Urine Color Yellow, Urine Appearance Clear, Urine pH 7.0, Ur Specific [place] <= 1.005, Urine Protein Negative, Urine Glucose (UA) Negative, Urine Ketones Negative, Urine Blood Negative, Urine Nitrate Negative, Urine Bilirubin Negative, Urine Urobilinogen 0.2, Ur Leukocyte Esterase Negative, Urine RBC Occasional, Urine WBC 3-5, Ur Squamous Epith Cells Occasional 05/08/24 17:46: Lactate 3.4 H 05/09/24 02:27: Urine Color Dark yellow, Urine Appearance Clear, Urine pH 6.5, Ur Specific [place] 1.015, Urine Protein 1+ A, Urine Glucose (UA) Negative, Urine Ketones Negative, Urine Blood Trace-i, Urine Nitrate Negative, Urine Bilirubin Negative, Urine Urobilinogen 0.2, Ur Leukocyte Esterase Trace, Urine RBC 3-5, Urine WBC 3-5, Ur Squamous Epith Cells 3-5, Urine Bacteria 1+ 05/09/24 05:23: WBC 15.1 H D, RBC 4.53 L, Hgb 14.3 D, Hct 44.4, MCV 97.9 H, MCH 31.6 H, MCHC 32.2, RDW 14.0, Plt Count 128 L D, MPV 8.0, Neut % (Auto) 93.5 H, Lymph % (Auto) 2.3 L, [place] % (Auto) 3.2, Eos % (Auto) 0.7, Baso % (Auto) 0.2, Neut # (Auto) 14.2 H, Lymph # (Auto) 0.4 L, [place] # (Auto) 0.5, Eos # (Auto) 0.1, Baso # (Auto) 0.0, Sodium 136, Potassium 3.3 L, Chloride 109 H, Carbon Dioxide 24, Anion Gap 6.3, BUN 22 H, Creatinine 1.20, Estimated Creat Clear 105, Estimated GFR 76, Est GFR ( Amer) 92, Glucose 95 D, Calcium 7.4 L, Total Bilirubin 2.2 H, AST 89 H D, ALT 140 H D, Alkaline Phosphatase 26 L, Total Protein 5.3 L, Albumin 2.9 L D, Globulin 2.4, Albumin/Globulin Ratio 1.2 I & O for Last 24 hours: Intake & Output 05/06/24 05/07/24 05/08/24 05/09/24 23:59 23:59 23:59 23:59 Intake Total 1800 / 2504 944 / 944 Output Total 0 / 0 350 / 350 Balance 1800 / 2504 594 / 594 Weight 68.039 kg 76.884 kg Microbiology Reports for the Last 24 Hours: Microbiology 05/08/24 10:49 Blood Blood Culture - Final 05/08/24 10:49 Blood Blood Culture - Final Assessment and Plan *Assessment and plan (1) Septic shock: Status: Acute Category: Medical Code(s): A41.9 - Sepsis, unspecified organism; R65.21 - Severe sepsis with septic shock (2) Acute appendicitis: Status: Acute Qualifiers: Acute appendicitis type: with localized peritonitis Appendicitis abscess presence: without abscess Appendicitis gangrene presence: unspecified whether gangrene present Appendicitis perforation presence: without perforation Qualified Code(s): K35.30 - Acute appendicitis with localized peritonitis, without perforation or gangrene Category: Medical Code(s): K35.80 - Unspecified acute appendicitis (3) Bacteremia due to Klebsiella pneumoniae: Status: Acute Category: Medical Code(s): R78.81 - Bacteremia; B96.1 - Klebsiella pneumoniae [K. pneumoniae] as the cause of diseases classified elsewhere Plan 23-year-old male who presented to the ER with abdominal pain. Meeting criteria for septic shock. Case discussed with surgery, request consultation due to patient's persistent clinical instability. I agreed to evaluate and assist with further management. Meeting septic shock criteria with fever of 103, leukocytosis of 2, infection in his abdomen, endorgan dysfunction with elevated liver enzymes, persistent hypotension with MAP below 65 after adequate fluid resuscitation, and lactate of 3.9. Overnight symptoms have improved. Continues to require inpatient management. Blood cultures positive at this time. Problems addressed as follows: Septic shock Klebsiella bacteremia -Recommend continuing Zosyn 4.5 g every 6 hours. Blood cultures initially showing Enterobacter and Klebsiella. Awaiting sensitivity and speciation. -White count elevated today at 15 up from 2. Repeat CBC, CMP, magnesium ordered for the morning. -Still has mild transaminitis with bilirubin 2.2, AST 89, ALT 140. Improved from admission. Tolerating p.o. fluids. Will discontinue IV fluids -Still having some andrez pain. Continue pain management per surgery recommendations -MAP remains above 65, no indication for Levophed at this time. -Discussed case with surgery today, will continue to keep patient on their service. Continuing antibiotics as above. Pain showing some improvement. Status post appendectomy. Pain showing improvement. Surgery managing. Recommend continuing to monitor stepdown level of care for the time being. Will de-escalate if patient remains stable over the next 24 hours. Showing good clinical improvement. Anticipate admission more than 2 midnights. Will need to transition to oral antibiotics to complete 7 to 10 days of therapy given his gram-negative bacteremia Thank for the consult on this patient. High risk of decompensation. Needs close monitoring. Condition effervescing, prognosis remains guarded. Patient is on antibiotics and pain medication needing close monitoring due to risk for toxicity. Full code Clear liquid diet
[2024-05-09 08:35] LABS: HCV Ab Non Reactive (Non Reactive)
[2024-05-09 09:03] LABS: Lymphocytes % 22 % (10-50); Monocytes % 3 % (2-9); Neutrophils % 75 % (42-76); Platelet Estimate Slight Decrease; RBC Morphology Normal; Total Cells Counted 100
[2024-05-09] MEDS: POTASSIUM CHLORIDE 20MEQ TAB 20 MEQ PO ×3 (10:37→21:14)
--- NOTE | 2024-05-09 15:43 | PC.NURSE ---
Patient ambulated in room twice and tolerated well. Patient able to ambulate to bathroom multiple times during shift. VS stable and patient remained on room air. Pain in abdomen on exam but patient asked multiple times if he wanted pain medication. Patient declined each and said he was ok. Bandage sites dry and intact and no change during shift. No fevers during shift.
[2024-05-10] VITALS: BP 96/48; PULSE 71; PULSE 79; RESP 16; TEMP 37.2; O2SAT 95
[2024-05-10] MEDS: PIPERACILLIN/TAZO 4.5 GM in 0.9 % SODIUM CHLORIDE 100 ML IV ×2 (00:28→06:10)
--- NOTE | 2024-05-10 03:30 | PC.NURSE ---
A/O x 3. male. Does not speak [place]mese. IPad interprter utilized for communication. Lap incisions x 3 with drsgs c/d/i. Positive bowel sounds x 4. Denies pain. Sinus Rhythm on tele.
[2024-05-10 03:53] VITALS: PULSE 72
[2024-05-10 04:00] VITALS: BP 108/58; PULSE 82; RESP 22; TEMP 37.1; O2SAT 95; BMI 27.2
[2024-05-10 06:21] LABS: Basophils # 0.1 K/mm3 (0-0.2); Basophils % 0.5 % (0.1-2.0); Eosinophils # 0.1 K/mm3 (0.0-0.4); Eosinophils % 0.8 % (0.1-12.0); Hematocrit 45.9 % (42.0-52.0); Hemoglobin 14.5 g/dL (14.1-18.0); Lymphocytes # 1.3 K/mm3 (0.7-4.5); Lymphocytes % 13.6 % (10-50); Mean Corpuscular HGB Conc 31.6 g/dL (31.8-35.4); Mean Corpuscular Hemoglobin 31.8 pg (27.0-31.2); Mean Corpuscular Volume 100.7 fl (80-94); Mean Platelet Volume 9.1 fl (7.4-10.4); Monocytes # 0.5 K/mm3 (0.1-1.0); Monocytes % 4.9 % (1.7-9.3); Neutrophils # 7.9 K/mm3 (1.8-7.8); Neutrophils % 80.2 % (37.0-80.0); Platelet Count 114 K/mm3 (142-424); Red Blood Count 4.56 M/mm3 (4.60-6.20); Red Cell Distribution Width 13.8 % (11.5-17.5); White Blood Count 9.8 K/mm3 (4.8-10.8)
[2024-05-10 06:31] LABS: Alanine Aminotransferase 118 U/L (12-78); Albumin Level 3.1 g/dl (3.5-5.0); Albumin/Globulin Ratio 1.1 (1.1-1.8); Alkaline Phosphatase 57 U/L (38-126); Aspartate Amino Transferase 70 U/L (17-59); Bilirubin,Total 2.3 mg/dl (0.2-1.3); Blood Urea Nitrogen 16 mg/dl (9-20); Calcium 8.2 mg/dl (8.4-10.2); Carbon Dioxide 23 mmol/L (22.0-30.0); Chloride 111 mmol/L (98-107); Creatinine Clearance Estimated 115 mL/min (50-200); Estimated Glomerular Filt Rate 84 ml/min (>60); GFR (African American) 101 ML/MIN (>60); Globulin 2.7 g/dL (1.3-3.2); Glucose 83 mg/dl (74-100); Sodium 135 mmol/L (136-145); Total Protein,Serum 5.8 g/dl (6.3-8.2)
--- NOTE | 2024-05-10 07:04 | EXP.SURG.PN ---
Subjective Patient reports: feels better Exam Data for Last 24 hours Vital signs and Labs for Last 24 Hours: Temp Pulse Resp BP Pulse Ox O2 Del Method O2 Flow Rate 98.8 F 82 22 108/58 L 95 Room Air 2 05/10/24 04:00 05/10/24 04:00 05/10/24 04:00 05/10/24 04:00 05/10/24 04:00 05/10/24 06:42 05/08/24 17:15 Laboratory Results - last 24 hr 05/08/24 10:43: Hepatitis C Antibody Non reactive, Hep C Ab Comment Comment 05/09/24 05:23: Total Counted 100, Neutrophils % (Manual) 75, Lymphocytes % (Manual) 22, Monocytes % (Manual) 3, Platelet Estimate Slight decrease, RBC Morphology Normal 05/10/24 05:38: WBC 9.8 D, RBC 4.56 L, Hgb 14.5, Hct 45.9, MCV 100.7 H, MCH 31.8 H, MCHC 31.6 L, RDW 13.8, Plt Count 114 L, MPV 9.1, Neut % (Auto) 80.2 H, Lymph % (Auto) 13.6, [place] % (Auto) 4.9, Eos % (Auto) 0.8, Baso % (Auto) 0.5, Neut # (Auto) 7.9 H, Lymph # (Auto) 1.3, [place] # (Auto) 0.5, Eos # (Auto) 0.1, Baso # (Auto) 0.1, Sodium 135 L, Potassium 4.0 D, Chloride 111 H, Carbon Dioxide 23, Anion Gap 5.0, BUN 16 D, Creatinine 1.10, Estimated Creat Clear 115, Estimated GFR 84, Est GFR ( Amer) 101, Glucose 83, Calcium 8.2 L, Magnesium 2.0, Total Bilirubin 2.3 H, AST 70 H, ALT 118 H, Alkaline Phosphatase 57, Total Protein 5.8 L, Albumin 3.1 L, Globulin 2.7, Albumin/Globulin Ratio 1.1 I & O for Last 24 hours: Intake & Output 05/07/24 05/08/24 05/09/24 05/10/24 11:59 11:59 11:59 11:59 Intake Total 4516 / 4516 1560 / 1560 Output Total 350 / 350 Balance 4166 / 4166 1559 / 1559 Weight 150 lb 169 lb 8 oz 169 lb 7.933 oz Microbiology Reports for the Last 24 Hours: Microbiology 05/08/24 10:49 Blood Blood Culture - Preliminary 05/08/24 10:49 Blood Blood Culture - Preliminary Constitutional Constitutional: no acute distress *Routine Respiratory Exam Respiratory: Absent respiratory distress *Routine Cardiovascular Exam Cardiovascular: Absent tachycardia *Routine Abdominal Exam Abdominal: Present soft Comments: Dressings intact. No erythema. Progress Note: A&P Assessment and plan (1) Septic shock: Status: Resolved Assessment and plan: Resolved (2) Acute appendicitis: Status: Acute Assessment and plan: Overall, doing well status post laparoscopic appendectomy (3) Bacteremia due to Klebsiella pneumoniae: Status: Acute Assessment and plan: Treatment as per Hospitalist service (4) Hyperbilirubinemia: Status: Acute Assessment and plan: Stable (etiology equivocal...? Gilbert, etc.) Plan serial evaluation in the outpatient setting Assessment and Plan Assessment and Plan for All Diagnoses:: Likely discharge home later today with close outpatient follow-up Complete course of antibiotics as per Hospitalist service
[2024-05-10 08:00] VITALS: BP 137/63; PULSE 58; PULSE 60; RESP 16; TEMP 36.6; O2SAT 96
[2024-05-10] MEDS: ENOXAPARIN 40MG/0.4ML SYRINGE 40 MG SQ (09:08)
[2024-05-10] MEDS: LEVOFLOXACIN/D5W 750 MG/150 ML 750 MG/150 ML PIGGYBACK 100 MG IV (09:12)
[2024-05-10] MEDS: HYDROCODONE/APAP 5/325 MG TABLET 1 TAB PO (11:52)
[2024-05-10 12:00] VITALS: BP 130/64; PULSE 62; RESP 16; TEMP 36.6; O2SAT 96
--- NOTE | 2024-05-10 12:20 | EXP.DC.SUM ---
General Admission date:: 05/08/24 Discharge date: 05/10/24 HPI HPI HPI: This is a 22-year-old gentleman who presents to the emergency department with increasing right lower quadrant pain evaluation revealed the patient to be febrile and tachycardic. Meeting severe sepsis criteria on presentation. Workup concerning for appendicitis on CT. Febrile to 103, white count 2. Surgery was consulted and patient was taken emergently to the OR for intervention/appendicitis. Received sepsis bolus between the ER and the OR. Broad-spectrum antibiotics with Zosyn administered. Cultures obtained. Upon arrival to the floor, patient's blood pressure remained low. Concern for meeting septic shock criteria given persistent hypotension with MAP less than 65. Medicine was consulted to assist with care. On evaluation, patient is alert and oriented. Appears to be perfusing well. No significant distress. Heart rate 95-100. Respiratory Support Technician used to obtain history. No past medical history of hospitalizations or previous surgeries. On no medications. No known medical conditions. Patient states he is feeling okay, does not feel dizzy or weak. Complains of some abdominal pain. Medicine consulted by surgery for assistance with medical management of his sepsis. History and review of systems obtained with the assistance of horticultural agent [id number]. Via the [employer] horticultural agent service Hospital Course Hospital Course Hospital Course: 23-year-old male who presented to the ER with abdominal pain. Meeting criteria for septic shock. Case discussed with surgery, request consultation due to patient's persistent clinical instability. I agreed to evaluate and assist with further management. Meeting septic shock criteria with fever of 103, leukocytosis of 2, infection in his abdomen, endorgan dysfunction with elevated liver enzymes, persistent hypotension with MAP below 65 after adequate fluid resuscitation, and lactate of 3.9. Symptoms improved over course of admission. Blood culture returned positive for Klebsiella. Sensitive to Levaquin, transition to oral therapy. Given his clinical improvement, advancement of diet, having bowel movements, stable to discharge home. Recommend outpatient follow-up with surgery. Problems addressed as follows: Septic shock Klebsiella bacteremia -Presented with septic shock, hypotensive with MAP around 60 even after fluid resuscitation. Did not require Levophed. Symptoms began to defervesce. Initial white count of 2, jumped to 15 the following morning. Showed improvement, normalized to 9.8 by day of discharge. Blood cultures positive for Klebsiella. Pathogen sensitive to Levaquin. Transitioned to Levaquin to complete empiric 10-day course for bacteremia. Will continue oral Levaquin 750 mg daily. Continues to have mild transaminitis on day of discharge and bilirubin 2.3, AST 70, ALT 118. Unclear etiology other than secondary to sepsis. Would benefit from further workup as an outpatient. Tolerating p.o. intake. Abdominal pain improving. Stable to discharge home with close follow-up with surgery as an outpatient. Status post appendectomy. Pain showing improvement. Surgery managing. Follow-up in 1 week for reevaluation of abdomen Exam Data for Last 24 hours Vital signs and Labs for Last 24 Hours: Temp Pulse Resp BP Pulse Ox O2 Del Method O2 Flow Rate 98 F 58 L 16 137/63 96 Room Air 2 05/10/24 08:00 05/10/24 08:00 05/10/24 08:00 05/10/24 08:00 05/10/24 08:00 05/10/24 11:00 05/08/24 17:15 Laboratory Results - last 24 hr 05/08/24 15:50: Urine Color Yellow, Urine Appearance Clear, Urine pH 7.0, Ur Specific [place] <= 1.005, Urine Protein Negative, Urine Glucose (UA) Negative, Urine Ketones Negative, Urine Blood Negative, Urine Nitrate Negative, Urine Bilirubin Negative, Urine Urobilinogen 0.2, Ur Leukocyte Esterase Negative, Urine RBC Occasional, Urine WBC 3-5, Ur Squamous Epith Cells Occasional 05/10/24 05:38: WBC 9.8 D, RBC 4.56 L, Hgb 14.5, Hct 45.9, MCV 100.7 H, MCH 31.8 H, MCHC 31.6 L, RDW 13.8, Plt Count 114 L, MPV 9.1, Neut % (Auto) 80.2 H, Lymph % (Auto) 13.6, [place] % (Auto) 4.9, Eos % (Auto) 0.8, Baso % (Auto) 0.5, Neut # (Auto) 7.9 H, Lymph # (Auto) 1.3, [place] # (Auto) 0.5, Eos # (Auto) 0.1, Baso # (Auto) 0.1, Sodium 135 L, Potassium 4.0 D, Chloride 111 H, Carbon Dioxide 23, Anion Gap 5.0, BUN 16 D, Creatinine 1.10, Estimated Creat Clear 115, Estimated GFR 84, Est GFR ( Amer) 101, Glucose 83, Calcium 8.2 L, Magnesium 2.0, Total Bilirubin 2.3 H, AST 70 H, ALT 118 H, Alkaline Phosphatase 57, Total Protein 5.8 L, Albumin 3.1 L, Globulin 2.7, Albumin/Globulin Ratio 1.1 I & O for Last 24 hours: Intake & Output 05/07/24 05/08/24 05/09/24 05/10/24 23:59 23:59 23:59 23:59 Intake Total 1800 / 2504 4176 / 4276 100 / 100 Output Total 0 / 0 350 / 350 1 / Balance 1800 / 2504 3826 / 3926 99 / 99 Weight 68.039 kg 76.884 kg 76.882 kg Microbiology Reports for the Last 24 Hours: Microbiology 05/08/24 10:49 Blood Blood Culture - Preliminary Klebsiella pneumoniae 05/08/24 10:49 Blood Blood Culture - Preliminary Klebsiella pneumoniae Constitutional Constitutional: no acute distress *Routine HEENT Exam Head: Present normocephalic Eye: Present EOMI and PERRL ENT: Present mucous membranes moist *Routine Neck Exam Neck: Present supple; Absent lymphadenopathy *Routine Respiratory Exam Respiratory: Present CTA bilaterally *Routine Cardiovascular Exam Cardiovascular: Present RRR *Routine Abdominal Exam Abdominal: Present soft, normoactive bowel sounds and tenderness (Over surgical incisions, significantly improved from admission) *Routine Rectal Exam Patient deferred: visual exam *Routine Exam Patient deferred: penile exam *Routine Extremities Exam Extremities: Absent cyanosis, clubbing or edema *Routine Skin Exam Skin: Present warm; Absent rash *Routine Neurological Exam Neurological: Present alert, oriented X3 and moving all extremities; Absent altered mental status Results Data Completed and Pending Labs on day of discharge: Labs from last 24 hours 05/10/24 05/08/24 05:38 15:50 WBC 9.8 D RBC 4.56 L Hgb 14.5 Hct 45.9 MCV 100.7 H MCH 31.8 H MCHC 31.6 L RDW 13.8 Plt Count 114 L MPV 9.1 Neut % (Auto) 80.2 H Lymph % (Auto) 13.6 [place] % (Auto) 4.9 Eos % (Auto) 0.8 Baso % (Auto) 0.5 Neut # (Auto) 7.9 H Lymph # (Auto) 1.3 [place] # (Auto) 0.5 Eos # (Auto) 0.1 Baso # (Auto) 0.1 Sodium 135 L Potassium 4.0 D Chloride 111 H Carbon Dioxide 23 Anion Gap 5.0 BUN 16 D Creatinine 1.10 Estimated Creat Clear 115 Estimated GFR 84 Est GFR ( Amer) 101 Glucose 83 Calcium 8.2 L Magnesium 2.0 Total Bilirubin 2.3 H AST 70 H ALT 118 H Alkaline Phosphatase 57 Total Protein 5.8 L Albumin 3.1 L Globulin 2.7 Albumin/Globulin Ratio 1.1 Urine Color Yellow Urine Appearance Clear Urine pH 7.0 Ur Specific [place] <= 1.005 Urine Protein Negative Urine Glucose (UA) Negative Urine Ketones Negative Urine Blood Negative Urine Nitrate Negative Urine Bilirubin Negative Urine Urobilinogen 0.2 Ur Leukocyte Esterase Negative Urine RBC Occasional Urine WBC 3-5 Ur Squamous Epith Cells Occasional Preliminary micro results at discharge 05/08/24 10:49 Blood Culture - Preliminary Blood Klebsiella pneumoniae 05/08/24 10:49 Blood Culture - Preliminary Blood Klebsiella pneumoniae DS: Diagnosis Discharge Diagnosis (1) Septic shock: Status: Resolved Code(s): A41.9 - Sepsis, unspecified organism; R65.21 - Severe sepsis with septic shock (2) Acute appendicitis: Status: Acute Code(s): K35.80 - Unspecified acute appendicitis Qualifiers: Acute appendicitis type: with localized peritonitis Appendicitis abscess presence: without abscess Appendicitis gangrene presence: unspecified whether gangrene present Appendicitis perforation presence: without perforation Qualified Code(s): K35.30 - Acute appendicitis with localized peritonitis, without perforation or gangrene (3) Bacteremia due to Klebsiella pneumoniae: Status: Acute Code(s): R78.81 - Bacteremia; B96.1 - Klebsiella pneumoniae [K. pneumoniae] as the cause of diseases classified elsewhere (4) Hyperbilirubinemia: Status: Acute Code(s): E80.6 - Other disorders of bilirubin metabolism Meds Home Medications and Allergies Home Medications ?Medication ?Instructions ?Recorded ?Confirmed ?Type hydrocodone 5 mg-acetaminophen 325 1 tab PO Q6HP PRN Moderate To 05/10/24 Rx mg tablet Severe Pain (4-10) 3 days #9 tabs levofloxacin 750 mg tablet 750 mg PO DAILY 7 days #7 tabs 05/10/24 Rx New Prescriptions to Start Prescriptions: hydrocodone-acetaminophen Nitesh Elder levofloxacin Nitesh Elder Allergies Allergy/AdvReac Type Severity Reaction Status Date / Time No Known Allergies Allergy Verified 05/08/24 11:00 Discharge Plan Disposition Patient Disposition: Home, Self-Care Condition: Fair Discharge Order Discharge Orders: Discharge Order (Routine); Ordered 05/10/24 Ordered By: Nitesh Elder Follow up Plan Follow up with: Provider,MD Elliot [Primary Care Provider] - See instructions Demario Walsh MD [Staff Physician] - 1 week (Contact Dr. Walsh's office for any questions and for follow up appointment. ) Prescriptions/Medication Reconciliation: New hydrocodone-acetaminophen 5-325 mg Tablet 1 tab PO Q6HP PRN (Reason: Moderate To Severe Pain (4-10)) 3 Days Qty: 9 0RF levofloxacin 750 mg tablet 750 mg PO DAILY 7 Days Qty: 7 0RF Rx Instructions: first dose 05/11/24 Problem Reconciliation Problems Reviewed?: Yes Patient Discharge Instructions ACTIVITY: Continue current activity DIET: continue same diet and advance to your usual diet Patient Instructions: DI for Appendicitis -- Adult, DI for an Appendectomy, DI for Surgical Site Infection, DI for Bacteremia-Adult Print Language: Macanese Providers Primary Care Provider: Provider,Referral Admit Provider: Demario Walsh Attending Provider: Demario Walsh
--- NOTE | 2024-05-10 13:23 | PC.NURSE ---
10:00 Dr. villarreal did rounds. used the IPAD for translation of instructions and to ask and answer questions. Plan to discharge home this after noon.
--- NOTE | 2024-05-10 13:49 | PC.NURSE ---
11:52 Pt. having some abdominal pain. Medicated with hydrocodone for pain.
--- NOTE | 2024-05-10 13:50 | PC.NURSE ---
12:22Pt. feeling much better. No pain at this time.
--- NOTE | 2024-05-10 13:52 | PC.NURSE ---
1305: Spoke to patient about discharge. Used the IPAD smooth stucco resurfacer for instructions. Pt. states he has a way home. He can call someone to pick him up. Pt. also lives with someone who can help him if he needs it. The [facility] will cover the cost of the antibiotics and pain meds. for this patient to go home with the meds. attempting to make a follow up appt. with the surgery office but have been unsuccessful.
--- NOTE | 2024-05-11 13:22 | SW/DCPLANNER ---
Hospital discharge phone call: no working number available.
== END 2024-05-10 14:35 | disposition home or self-care (01) | DRG 397 ==
LOC: UTC 10:29 → ER 10:42 → SDC 13:05 → 2ND 16:24
PROVIDERS: Internal Medicine; Internal Medicine Adolescent Medicine; Admitting Provider Surgery; Emergency Provider Student in an Organized Health Care Education/Training Program; Visit Provider Surgery
PROC: 0DTJ4ZZ Resection of Appendix, Percutaneous Endoscopic Approach (ICD-10-PCS; CPT 44970; principal; 2024-05-08 14:00)
DX: K35.30 Acute appendicitis with localized peritonitis, without perforation or gangrene (principal); A41.50 Gram-negative sepsis, unspecified; R65.21 Severe sepsis with septic shock; F17.200 Nicotine dependence, unspecified, uncomplicated
CPT/HCPCS: 44970; 36415; 74177; 80053; 81001; 83605; 83690; 83735; 85007; 85025; 85027; 86803; 87040; 87077; 87186; 87389; 93005; 96374; 99291; J3490; J0131; J0696; J1100; J1650; J1885; J1956; J2250; J2270; J2405; J2543; J3010; J3370; J7120; Q9967